=== PATIENT | female | born 1935 | race Native Hawaiian/Other Pacific Islander ===

== ENCOUNTER 2018-08-12 04:27 | Observation (INO) | payer MEDICARE, MEDICAID ==
[2018-08-12 04:31] VITALS: BMI 30.2
--- NOTE | 2018-08-12 04:48 | ED PDOC ---
Arrival/HPI - History of Present Illness Narrative History of Present Illness (Text): 08/12/18 04:52 Pt is an 83 yo female with a PMH of CAD who presents to the ED complaining of dizziness, and 4 episodes of NBNB vomiting with nausea. Pt denies chest pain or SOB. Time/Duration: Prior to Arrival Symptom Course: Unchanged Activities at Onset: Rest Context: Sitting <Michele Reina - Last Filed: 08/12/18 06:05> <Jason Trujillo - Last Filed: 08/12/18 06:35> - General Chief Complaint: Dizziness/Lightheaded Time Seen by Provider: 08/12/18 04:28 Past Medical History - Infectious Disease Hx of Infectious Diseases: None - Cardiac Hx Hypertension: Yes - Pulmonary Hx Respiratory Disorders: No - Neurological Hx Neurological Disorder: No Hx Paralysis: No Hx Vertigo: Yes - HEENT Hx HEENT Disorder: No - Renal Hx Renal Disorder: No - Endocrine/Metabolic Hx Diabetes Mellitus Type 2: Yes - Hematological/Oncological Hx Blood Disorders: No Hx Blood Transfusions: No Hx Blood Transfusion Reaction: No - Integumentary Hx Dermatological Disorder: No Hx Basal Cell Carcinoma: No - Musculoskeletal/Rheumatological Hx Musculoskeletal Disorders: Yes - Psychiatric Hx Emotional Abuse: No Hx Physical Abuse: No Hx Substance Use: No - Surgical History Hx Cardiac Catheterization: Yes - Anesthesia Hx Anesthesia: No Hx Anesthesia Reactions: No Hx Malignant Hyperthermia: No - Suicidal Assessment Feels Threatened In Home Enviroment: No <Michele Reina - Last Filed: 08/12/18 06:05> Family/Social History Family/Social History: Unknown Family HX Smoking Status: Former Smoker Hx Alcohol Use: No Hx Substance Use: No <Michele Reina - Last Filed: 08/12/18 06:05> Allergies/Home Meds <Michele Reinaron - Last Filed: 08/12/18 06:05> <Jason Trujillo - Last Filed: 08/12/18 06:35> Allergies/Adverse Reactions: Allergies No Known Allergies Allergy (Verified 08/12/18 04:32) Home Medications: Home Meds Medication Instructions Recorded Confirmed Aspirin [Adult Low Dose Aspirin EC] 81 mg PO DAILY 08/12/18 08/12/18 Clopidogrel [Plavix] 75 mg PO DAILY 08/12/18 08/12/18 Famotidine [Pepcid] 20 mg PO DAILY 08/12/18 08/12/18 Ibuprofen [Motrin Tab] 800 mg PO TID 08/12/18 08/12/18 Meclizine [Antivert] 25 mg PO TID 08/12/18 08/12/18 Metoprolol Succinate [Kapspargo 100 mg PO DAILY 08/12/18 08/12/18 Sprinkle] Simvastatin [Zocor] 20 mg PO QPM 08/12/18 08/12/18 Sitagliptin Phos/Metformin HCl 1 each PO DAILY 08/12/18 08/12/18 [Janumet 50-500 mg Tablet] Telmisartan [Micardis] 80 mg PO DAILY 08/12/18 08/12/18 hydrALAZINE [hydralazine 25 mg PO QPM 08/12/18 08/12/18 Hydrochloride] traZODone [trazODONE HYDROCHLORIDE] 50 mg PO HS 08/12/18 08/12/18 Review of Systems - Review of Systems Constitutional: Normal Eyes: Normal ENT: Normal Respiratory: Normal Cardiovascular: Normal Gastrointestinal: Normal Musculoskeletal: Normal Skin: Normal Neurological: Dizziness Endocrine: Normal Hemo/Lymphatic: Normal Psychiatric: Normal <Michele Reina - Rodney Filed: 08/12/18 06:05> Physical Exam Vital Signs Reviewed: Yes Vital Signs Temp Pulse Resp BP Pulse Ox 08/12/18 04:35 97.4 F L 75 18 187/100 H 98 Temperature: Afebrile Blood Pressure: Normal Pulse: Regular Respiratory Rate: Normal Appearance: Positive for: Well-Appearing Mental Status: Positive for: Alert and Oriented X 3 Finger Stick Blood Glucose: 177 - Systems Exam Head: Present: Atraumatic, Normocephalic Pupils: Present: PERRL Extroacular Muscles: Present: EOMI Conjunctiva: Present: Normal Mouth: Present: Moist Mucous Membranes Neck: Present: Normal Range of Motion Respiratory/Chest: Present: Clear to Auscultation, Good Air Exchange Cardiovascular: Present: Regular Rate and Rhythm Abdomen: No: Tenderness, Distention Upper Extremity: Present: Normal Inspection Lower Extremity: Present: Normal Inspection Neurological: Present: GCS=15, CN II-XII Intact Skin: Present: Warm, Dry, Normal Color Psychiatric: Present: Alert, Oriented x 3 <Michele Reina - Last Filed: 08/12/18 06:05> Vital Signs Temp Pulse Resp BP Pulse Ox 08/12/18 04:35 97.4 F L 75 18 187/100 H 98 <Jason Trujillo - Last Filed: 08/12/18 06:35> Medical Decision Making ED Course and Treatment: 08/12/18 04:56 CBC CMP Troponin NS100 CXR EKG zofran meclazine 08/12/18 05:02 EKG HR78, RRR, no signs of ST or T wave abnormalities, shows 1st degree block 08/12/18 06:05 pt admitted to hospitalist service Pt seen, examined, assessment and plan discussed with Dr Ronnie Reina PGY1 <Michele Reina - Last Filed: 08/12/18 06:05> - RAD Interpretation Narrative RAD Interpretations (Text): 08/12/18 06:35 cxr my read: no focal infiltrate, cardiomegaly, no wide mediastinum Radiology Orders: 08/12/18 04:49 CHEST TWO VIEWS (PA/LAT) [RAD] Stat Test Kitchen Home Economist: ED Physician - EKG Interpretation EKG Interpretation (Text): 08/12/18 05:01 ekg my read: sinus rhythm at 78 bpm, 1st degree av block, nml qrs, nml axis, inferior infarct, no acute sttw abn Interpreted by ED Physician: Yes - Medication Orders Current Medication Orders: Sodium Chloride (Sodium Chloride 0.9%) 1,000 mls @ 100 mls/hr IV .Q10H JOHN Last Admin: 08/12/18 04:59 Dose: 100 mls/hr eMAR Start Stop Document 08/12/18 04:59 CNR (Rec: 08/12/18 04:59 CNR [id number]) Intravenous Solution Start Date 08/12/18 Start Time 04:59 Discontinued Medications Meclizine HCl (Antivert) 25 mg PO STAT STA Stop: 08/12/18 04:52 Ondansetron HCl (Zofran Inj) 4 mg IVP STAT STA Stop: 08/12/18 04:51 Last Admin: 08/12/18 04:58 Dose: 4 mg IVP Administration Document 08/12/18 04:58 CNR (Rec: 08/12/18 04:59 CNR [id number]) Charges for Administration # of IVP Administrations 1 <Jason Trujillo - Last Filed: 08/12/18 06:35> Disposition/Present on Arrival - Present on Arrival Any Indicators Present on Arrival: No History of DVT/PE: No History of Uncontrolled Diabetes: No Urinary Catheter: No History of Decub. Ulcer: No History Surgical Site Infection Following: Orthopedic Procedures - Disposition Have Diagnosis and Disposition been Completed?: Yes Disposition Time: 06:18 Patient Plan: Admission <Michele Reina - Last Filed: 08/12/18 06:05> <Jason Trujillo - Last Filed: 08/12/18 06:35> - Disposition Diagnosis: Vertigo Disposition: HOSPITALIZED Patient Problems: Current Active Problems Problem Status Onset Vertigo Acute Condition: FAIR
[2018-08-12] MEDS ORDERED: Sodium Chloride 0.9% 1,000 ML IV SCH (05:00)
[2018-08-12 05:24] LABS: BASO # 0.01 K/mm3 (0.0-2.0); BASO % 0.1 % (0.0-3.0); EOS # 0.3 (0.0-0.7); EOS % 2.4 % (1.5-5.0); HEMOGLOBIN 14.6 g/dL (12.0-16.0); LYMPH # 2.3 (1.2-3.4); LYMPH % 20.2 % (22.0-35.0); MEAN CELL VOLUME 88.8 fl (80.0-105.0); MEAN CORPUSCULAR HEMOGLOBIN 29.1 pg (25.0-35.0); MEAN CORPUSCULAR HGB CONC 32.7 g/dl (31.0-37.0); MEAN PLATELET VOLUME 10.3 fl (7.0-11.0); MONO # 0.6 (0.1-0.6); MONO % 5.5 % (1.0-6.0); RBC 5.02 10^6/uL (3.5-6.1); RED CELL DISTRIBUTION WIDTH 14.8 % (11.5-14.5); WHITE BLOOD COUNT 11.4 10^3/uL (4.5-11.0)
[2018-08-12 05:39] LABS: ALB/GLOB RATIO 1.1 (1.1-1.8); ALBUMIN 5.2 g/dL (3.0-4.8); ALT/SGPT 22 U/L (7-56); AST/SGOT 52 U/L (14-36); BLOOD UREA NITROGEN 15 mg/dL (7-21); CALCIUM 9.4 mg/dL (8.4-10.5); GFR NON-AFRICAN AMERICAN > 60
[2018-08-12 05:50] LABS: TROPONIN I < 0.01 ng/mL
[2018-08-12 06:26] VITALS: O2SAT 98
[2018-08-12] MEDS ORDERED: Iohexol 350 MG/100 ML VIAL ONE (08:16)
--- NOTE | 2018-08-12 08:34 | ED PDOC ---
Arrival/HPI - General Chief Complaint: Dizziness/Lightheaded Time Seen by Provider: 08/12/18 04:28 Past Medical History - Infectious Disease Hx of Infectious Diseases: None - Cardiac Hx Hypertension: Yes - Pulmonary Hx Respiratory Disorders: No - Neurological Hx Neurological Disorder: No Hx Paralysis: No Hx Vertigo: Yes - HEENT Hx HEENT Disorder: No - Renal Hx Renal Disorder: No - Endocrine/Metabolic Hx Diabetes Mellitus Type 2: Yes - Hematological/Oncological Hx Blood Disorders: No Hx Blood Transfusions: No Hx Blood Transfusion Reaction: No - Integumentary Hx Dermatological Disorder: No Hx Basal Cell Carcinoma: No - Musculoskeletal/Rheumatological Hx Musculoskeletal Disorders: Yes - Psychiatric Hx Emotional Abuse: No Hx Physical Abuse: No Hx Substance Use: No - Surgical History Hx Cardiac Catheterization: Yes - Anesthesia Hx Anesthesia: No Hx Anesthesia Reactions: No Hx Malignant Hyperthermia: No - Suicidal Assessment Feels Threatened In Home Enviroment: No Family/Social History Family/Social History: Unknown Family HX Smoking Status: Former Smoker Hx Alcohol Use: No Hx Substance Use: No Allergies/Home Meds Allergies/Adverse Reactions: Allergies No Known Allergies Allergy (Verified 08/12/18 04:32) Home Medications: Home Meds Medication Instructions Recorded Confirmed Aspirin [Adult Low Dose Aspirin EC] 81 mg PO DAILY 08/12/18 08/12/18 Clopidogrel [Plavix] 75 mg PO DAILY 08/12/18 08/12/18 Famotidine [Pepcid] 20 mg PO DAILY 08/12/18 08/12/18 Ibuprofen [Motrin Tab] 800 mg PO TID 08/12/18 08/12/18 Meclizine [Antivert] 25 mg PO TID 08/12/18 08/12/18 Metoprolol Succinate [Kapspargo 100 mg PO DAILY 08/12/18 08/12/18 Sprinkle] Simvastatin [Zocor] 20 mg PO QPM 08/12/18 08/12/18 Sitagliptin Phos/Metformin HCl 1 each PO DAILY 08/12/18 08/12/18 [Janumet 50-500 mg Tablet] Telmisartan [Micardis] 80 mg PO DAILY 08/12/18 08/12/18 hydrALAZINE [hydralazine 25 mg PO QPM 08/12/18 08/12/18 Hydrochloride] traZODone [trazODONE HYDROCHLORIDE] 50 mg PO HS 08/12/18 08/12/18 Physical Exam Vital Signs Temp Pulse Resp BP Pulse Ox 08/12/18 08:09 97.9 F 83 18 149/89 98 08/12/18 06:25 82 19 156/89 H 98 08/12/18 05:08 73 16 163/93 H 95 08/12/18 04:35 97.4 F L 75 18 187/100 H 98 Finger Stick Blood Glucose: 177 Medical Decision Making - Lab Interpretations Lab Results: Troponin I < 0.01 ng/mL 08/12/18 05:08 Total Bilirubin 0.7 mg/dL (0.2-1.3) 08/12/18 05:08 AST 52 U/L (14-36) H 08/12/18 05:08 ALT 22 U/L (7-56) 08/12/18 05:08 Alkaline Phosphatase 90 U/L (38-126) 08/12/18 05:08 Total Protein 9.8 g/dL (5.8-8.3) H 08/12/18 05:08 Albumin 5.2 g/dL (3.0-4.8) H 08/12/18 05:08 Globulin 4.6 gm/dL 08/12/18 05:08 Albumin/Globulin Ratio 1.1 (1.1-1.8) 08/12/18 05:08 - RAD Interpretation Radiology Orders: 08/12/18 04:49 CHEST TWO VIEWS (PA/LAT) [RAD] Stat - Medication Orders Current Medication Orders: Aspirin (Ecotrin) 81 mg PO 0800 JOHN Sodium Chloride (Sodium Chloride 0.9%) 1,000 mls @ 100 mls/hr IV .Q10H JOHN Last Admin: 08/12/18 04:59 Dose: 100 mls/hr eMAR Start Stop Document 08/12/18 04:59 CNR (Rec: 08/12/18 04:59 CNR [id number]) Intravenous Solution Start Date 08/12/18 Start Time 04:59 Ondansetron HCl (Zofran Inj) 4 mg IVP Q6H PRN PRN Reason: Nausea/Vomiting Discontinued Medications Meclizine HCl (Antivert) 25 mg PO STAT STA Stop: 08/12/18 04:52 Last Admin: 08/12/18 05:43 Dose: 25 mg Ondansetron HCl (Zofran Inj) 4 mg IVP STAT STA Stop: 08/12/18 04:51 Last Admin: 08/12/18 04:58 Dose: 4 mg IVP Administration Document 08/12/18 04:58 CNR (Rec: 08/12/18 04:59 CNR [id number]) Charges for Administration # of IVP Administrations 1 Disposition/Present on Arrival - Present on Arrival Any Indicators Present on Arrival: No History of DVT/PE: No History of Uncontrolled Diabetes: No Urinary Catheter: No History of Decub. Ulcer: No History Surgical Site Infection Following: Orthopedic Procedures - Disposition Diagnosis: Vertigo Disposition: HOSPITALIZED Patient Problems: Current Active Problems Problem Status Onset Vertigo Acute Condition: FAIR
--- NOTE | 2018-08-12 09:19 | RAD ---
Date of service: 08/12/2018 HISTORY: vertigo COMPARISON: No prior. TECHNIQUE: Chest PA and lateral views FINDINGS: LUNGS: No active pulmonary disease. PLEURA: No significant pleural effusion identified. No pneumothorax apparent. CARDIOVASCULAR: No aortic atherosclerotic calcification present. Normal cardiac size. No pulmonary vascular congestion. OSSEOUS STRUCTURES: No significant abnormalities. VISUALIZED UPPER ABDOMEN: Normal. OTHER FINDINGS: None. IMPRESSION: No active disease.
--- NOTE | 2018-08-12 09:37 | CT ---
Date of service: 08/12/2018 PROCEDURE: CT HEAD WITHOUT CONTRAST. HISTORY: weakness COMPARISON: None available. TECHNIQUE: Axial computed tomography images were obtained through the head/brain without intravenous contrast. Radiation dose: Total exam DLP = 847.27 mGy-cm. This CT exam was performed using one or more of the following dose reduction techniques: Automated exposure control, adjustment of the mA and/or kV according to patient size, and/or use of iterative reconstruction technique. FINDINGS: HEMORRHAGE: No intracranial hemorrhage. BRAIN: No mass effect or edema. No atrophy or chronic microvascular ischemic changes. VENTRICLES: Unremarkable. No hydrocephalus. CALVARIUM: Unremarkable. PARANASAL SINUSES: Unremarkable as visualized. No significant inflammatory changes. MASTOID AIR CELLS: Unremarkable as visualized. No inflammatory changes. OTHER FINDINGS: None. IMPRESSION: Normal CT of the Head.
[2018-08-12 10:15] LABS: HDL CHOLESTEROL 62 mg/dL (29-60)
[2018-08-12 10:25] LABS: LDL CHOLESTEROL 55 mg/dL (0-129)
--- NOTE | 2018-08-12 11:32 | MRI ---
Date of service: 08/12/2018 PROCEDURE: MRI BRAIN WITHOUT CONTRAST HISTORY: rule out strooke COMPARISON: None available. TECHNIQUE: Multiplanar, multisequence MR images of the brain were obtained without intravenous contrast enhancement. FINDINGS: HEMORRHAGE: None DWI: No evidence of an acute or early subacute infarction. BRAIN PARENCHYMA: No mass effect or edema. Mild chronic microvascular changes are seen in the periventricular and deep white matter. There is moderate atrophy especially over the frontal lobes. VENTRICLES: Unremarkable. No hydrocephalus. CRANIUM: Unremarkable. ORBITS: Grossly unremarkable. PARANASAL SINUSES/MASTOIDS: Clear VASCULAR SYSTEM: Skull base flow voids intact. OTHER FINDINGS: None. IMPRESSION: Mild chronic microvascular changes are seen in the periventricular and deep white matter. There is moderate atrophy especially over the frontal lobes. No acute intracranial findings
[2018-08-12] MEDS ORDERED: Potassium Chloride 40 mEq/30 ml LIQ UD PO ONE (11:48)
--- NOTE | 2018-08-12 12:19 | CT ---
Date of service: 08/12/2018 PROCEDURE: CT Angiography of the neck with contrast HISTORY: evaluation of vertigo COMPARISON: None. TECHNIQUE: Contiguous axial images of the neck were obtained from the level of the skull-base to the superior mediastinum in the arteriographic phase of enhancement. Coronal and sagittal reformats or also generated. IV contrast dose: 100 cc of Omni 350 Radiation dose: Total exam DLP = 491.93 mGy-cm. This CT exam was performed using one or more of the following dose reduction techniques: Automated exposure control, adjustment of the mA and/or kV according to patient size, and/or use of iterative reconstruction technique. FINDINGS: RIGHT CAROTID ARTERIES: Common Carotid Artery: Normal. Carotid Bifurcation: Normal. Internal Carotid Artery:Normal. External Carotid Artery (proximal branches): Normal. LEFT CAROTID ARTERIES: Common Carotid Artery: Normal. Carotid Bifurcation: Normal. Internal Carotid Artery:Normal. External Carotid Artery (proximal branches): Normal. VERTEBRAL ARTERIES: Right Vertebral Artery: Normal. Left Vertebral Artery: Normal. OTHER FINDINGS: no aortic atherosclerotic calcification or mural plaque present. IMPRESSION: No significant stenosis CT Angiography of the Brain. HISTORY: evaluation of vertigo COMPARISON: None available. TECHNIQUE: CT angiography of the intracranial arteries was performed. Coronal and sagittal maximum intensity projection reformated images were generated. Radiation dose: Total exam DLP = 491.93 mGy-cm. This CT exam was performed using one or more of the following dose reduction techniques: Automated exposure control, adjustment of the mA and/or kV according to patient size, and/or use of iterative reconstruction technique. FINDINGS: INTERNAL CEREBRAL ARTERIES: Unremarkable. The skull base, petrous, cavernous and supraclinoid segments are bilaterally widely patent. ANTERIOR CEREBRAL ARTERIES: Unremarkable. A1 and A2 segments are widely patent. Smaller distal branches unremarkable, as visualized. MIDDLE CEREBRAL ARTERIES: Unremarkable. M1 and M2 segments are widely patent. Perisylvian branches grossly symmetric. POSTERIOR CIRCULATION: Basilar Artery: Unremarkable. Distal Vertebral Arteries: Unremarkable. Posterior Cerebral Arteries: Unremarkable. Posterior Inferior Cerebellar Arteries: Unremarkable. ANEURYSM/ VASCULAR MALFORMATIONS: None. OTHER FINDINGS: None. IMPRESSION: Unremarkable CT Angiography of the Brain.
[2018-08-12] MEDS ORDERED: Dextrose 50% SYRINGE Inj (50 ml) IV PRN (12:22)
--- NOTE | 2018-08-12 12:29 | CP.PCM.HP ---
<WesleyneilLaxmi dodson - Last Filed: 08/12/18 12:17> History of Present Illness - History of Present Illness History of Present Illness: Laxmi Tran, PGY-1, Internal Medicine History and Physical for Dr. Baca 83 year old female with past medical history of vertigo, hypertension, CAD with 1 stent placed 10 years ago, diabetes mellitus presented with dizziness that started at 2:00 this morning. She woke up, went to the bathroom, and had seven episodes of vomitus. She reports that she has felt this way in the past for vertigo attacks, however, this is the worst vertigo attack that she has had. She felt dizzy, worse with head movement and improved with closing her eye. Dizziness was also worsened with sitting up. She denied tongue biting, loss of consciousness, fecal/urinary incontinence, recent URI, tinnitus, hearing loss. She denied any weakness on one side compared to the other. She recently had metoprolol succinate increased to 100 mg from 50 mg due to elevated blood pressure. 12-point ROS was unremarkable except for what was mentioned above. PMH: as stated above PSH: denies FMHx: sister had breast cancer SHx: denies alcohol, tobacco, recreational drug use Allergies: NKDA PMD: Dr. Ortiz [facility]acy[facility] Insurance: [employer] Home medications: janumet 50/500 once a day trazodone 50 once a day for insomnia vitamin b12 500 mcg meclizine 25 mg three times a day hydralazine 25 mg as needed for elevated blood pressure famotidine 20 mg once a day motrin 800 mg three times a day 10 days supply ammonium lactate lotion telmisartan 80 mg once a day metoprolol succinate 100 mg daily aspirin 81 mg daily metformin 1000 mg BID simvastatin 20 mg daily multivitamin plavix 75 mg daily Present on Admission - Present on Admission Any Indicators Present on Admission: No Review of Systems - Review of Systems Review of Systems: except for what was mentioned above. Past Patient History - Infectious Disease Hx of Infectious Diseases: None - Past Social History Smoking Status: Former Smoker - CARDIAC Hx Hypertension: Yes - PULMONARY Hx Respiratory Disorders: No - NEUROLOGICAL Hx Neurological Disorder: No Hx Paralysis: No Hx Vertigo: Yes - HEENT Hx HEENT Problems: No - RENAL Hx Chronic Kidney Disease: No - ENDOCRINE/METABOLIC Hx Diabetes Mellitus Type 2: Yes - HEMATOLOGICAL/ONCOLOGICAL Hx Blood Disorders: No Hx Blood Transfusions: No Hx Blood Transfusion Reaction: No - INTEGUMENTARY Hx Dermatological Problems: No Hx Basil Cell: No - MUSCULOSKELETAL/RHEUMATOLOGICAL Hx Musculoskeletal Disorders: Yes - PSYCHIATRIC Hx Emotional Abuse: No Hx Physical Abuse: No Hx Substance Use: No - SURGICAL HISTORY Hx Cardiac Catheterization: Yes - ANESTHESIA Hx Anesthesia: No Hx Anesthesia Reactions: No Hx Malignant Hyperthermia: No Meds Allergies/Adverse Reactions: Allergies Allergy/AdvReac Type Severity Reaction Status Date / Time No Known Allergies Allergy Verified 08/12/18 12:04 Physical Exam - Constitutional Appears: Non-toxic Additional comments: nauseated at bedside - Head Exam Head Exam: ATRAUMATIC, NORMAL INSPECTION, NORMOCEPHALIC - Eye Exam Eye Exam: EOMI Pupil Exam: PERRL - ENT Exam ENT Exam: Mucous Membranes Moist - Neck Exam Neck exam: Positive for: Normal Inspection - Respiratory Exam Respiratory Exam: Clear to Auscultation Bilateral, NORMAL BREATHING PATTERN - Cardiovascular Exam Cardiovascular Exam: REGULAR RHYTHM, RRR, +S1, +S2. absent: Clicks, Gallop, Rubs - GI/Abdominal Exam GI & Abdominal Exam: Normal Bowel Sounds, Soft. absent: Distended, Firm, Guarding, Tenderness - Extremities Exam Extremities exam: Positive for: full ROM, normal inspection - Back Exam Back exam: NORMAL INSPECTION - Neurological Exam Neurological exam: Alert, CN II-XII Intact, Normal Gait, Oriented x3 - Expanded Neurological Exam Expanded Patient oriented to: person, place, time Cranial nerves: EOM's Intact: Normal, Facial Palsey w/Forehead Movement: Normal, Facial Palsey w/o Forehead Movement: Normal, Facial Sensation: Normal, Nystagmus: Normal, Tongue Deviation: Normal Cerebellar Function: Finger to Nose: Normal Upper motor neuron: Mike Neglect: Normal Neuro motor strength exam: Left Upper Extremity: 5, Right Upper Extremity: 5, Left Lower Extremity: 5, Right Lower Extremity: 5 Coma Scale Eye Opening: SPONTANEOUS Coma Scale Motor Response: OBEYS COMMANDS Coma Scale Verbal: Oriented Coma Scale Total: 15 - Psychiatric Exam Psychiatric exam: Normal Affect, Normal Mood - Skin Skin Exam: Dry, Intact, Normal Color Results - Vital Signs Recent Vital Signs: Last Vital Signs Temp 97.9 F 08/12/18 08:09 Pulse 83 08/12/18 08:09 Resp 18 08/12/18 08:09 BP 149/89 08/12/18 08:09 Pulse Ox 98 08/12/18 08:09 - Labs Result Diagrams: 08/12/18 05:08 08/12/18 05:08 Labs: Laboratory Results - last 24 hr 08/12/18 08/12/18 08/12/18 05:08 05:08 05:08 WBC 11.4 H RBC 5.02 Hgb 14.6 Hct 44.6 MCV 88.8 MCH 29.1 MCHC 32.7 RDW 14.8 H Plt Count 189 MPV 10.3 Neut % (Auto) 71.8 H Lymph % (Auto) 20.2 L Burnett % (Auto) 5.5 Eos % (Auto) 2.4 Baso % (Auto) 0.1 Lymph # (Auto) 2.3 Burnett # (Auto) 0.6 Eos # (Auto) 0.3 Baso # (Auto) 0.01 Absolute Neuts (auto) 8.17 H Sodium 145 Potassium 3.5 L Chloride 105 Carbon Dioxide 24 Anion Gap 19 BUN 15 Creatinine 0.6 L Est GFR ( Amer) > 60 Est GFR (Non-Af Amer) > 60 Random Glucose 201 H Calcium 9.4 Total Bilirubin 0.7 AST 52 H ALT 22 Alkaline Phosphatase 90 Troponin I < 0.01 Total Protein 9.8 H Albumin 5.2 H Globulin 4.6 Albumin/Globulin Ratio 1.1 Triglycerides 104 Cholesterol 147 LDL Cholesterol Direct 55 HDL Cholesterol 62 H TSH 3rd Generation 08/12/18 08:07 WBC RBC Hgb Hct MCV MCH MCHC RDW Plt Count MPV Neut % (Auto) Lymph % (Auto) Burnett % (Auto) Eos % (Auto) Baso % (Auto) Lymph # (Auto) Burnett # (Auto) Eos # (Auto) Baso # (Auto) Absolute Neuts (auto) Sodium Potassium Chloride Carbon Dioxide Anion Gap BUN Creatinine Est GFR ( Amer) Est GFR (Non-Af Amer) Random Glucose Calcium Total Bilirubin AST ALT Alkaline Phosphatase Troponin I Total Protein Albumin Globulin Albumin/Globulin Ratio Triglycerides Cholesterol LDL Cholesterol Direct HDL Cholesterol TSH 3rd Generation 1.60 Assessment & Plan - Assessment and Plan (Free Text) Assessment: 83 year old female with past medical history of vertigo, hypertension, CAD with 1 stent placed 10 years ago, diabetes mellitus presented with dizziness that started at 2:00 this morning. Patient was admitted for likely vertigo. Plan: Dizziness likely 2/2 to vertigo with rule out of CVA -Brain MRI: mild chronic microvascular changes in periventricular and deep white matter. Moderate atrophy over frontal lobes -Head CT and CTA were unremarkable -EKG: sinus rhythm with 1st degree AV block with HR: 78 -Tropx1 Negative. Follow up 2 more troponins -Doubt CVA due to negative findings -TSH: unremarkable -Lipid panel unremarkable -Follow up HgbA1c -Will start meclizine for likely vertigo -Start zofran for nausea -Dr. Bauer, Neurology, consulted for further recommendations Left calf tenderness with rule out DVT -Follow up extremity ultrasound results CAD status post 1 stent -Start aspirin, lipitor, plavix, cozaar, toprol Hypertension -Start cozaar, toprol Insomnia -Continue home trazodone Diabetes mellitus type II -Follow up hemoglobin A1c -Start medium SSI -Accuchecks ACHS Hypokalemia -Replete as necessary GI prophylaxis: pepcid BID DVT prophylaxis: lovenox Patient plan discussed with Dr. Baca - Date & Time Date: 08/12/18 Time: 12:31 <Lisa Baca - Last Filed: 08/12/18 13:47> Results - Vital Signs Recent Vital Signs: Last Vital Signs Temp 97.3 F L 08/12/18 12:00 Pulse 73 08/12/18 12:00 Resp 20 08/12/18 12:00 BP 155/90 H 08/12/18 12:00 Pulse Ox 98 08/12/18 08:09 - Labs Result Diagrams: 08/12/18 05:08 08/12/18 05:08 Labs: Laboratory Results - last 24 hr 08/12/18 08/12/18 08/12/18 05:08 05:08 05:08 WBC 11.4 H RBC 5.02 Hgb 14.6 Hct 44.6 MCV 88.8 MCH 29.1 MCHC 32.7 RDW 14.8 H Plt Count 189 MPV 10.3 Neut % (Auto) 71.8 H Lymph % (Auto) 20.2 L Burnett % (Auto) 5.5 Eos % (Auto) 2.4 Baso % (Auto) 0.1 Lymph # (Auto) 2.3 Burnett # (Auto) 0.6 Eos # (Auto) 0.3 Baso # (Auto) 0.01 Absolute Neuts (auto) 8.17 H Sodium 145 Potassium 3.5 L Chloride 105 Carbon Dioxide 24 Anion Gap 19 BUN 15 Creatinine 0.6 L Est GFR ( Amer) > 60 Est GFR (Non-Af Amer) > 60 Random Glucose 201 H Calcium 9.4 Total Bilirubin 0.7 AST 52 H ALT 22 Alkaline Phosphatase 90 Lactate Dehydrogenase Total Creatine Kinase Troponin I < 0.01 Total Protein 9.8 H Albumin 5.2 H Globulin 4.6 Albumin/Globulin Ratio 1.1 Triglycerides 104 Cholesterol 147 LDL Cholesterol Direct 55 HDL Cholesterol 62 H TSH 3rd Generation 08/12/18 08/12/18 08:07 12:50 WBC RBC Hgb Hct MCV MCH MCHC RDW Plt Count MPV Neut % (Auto) Lymph % (Auto) Burnett % (Auto) Eos % (Auto) Baso % (Auto) Lymph # (Auto) Burnett # (Auto) Eos # (Auto) Baso # (Auto) Absolute Neuts (auto) Sodium Potassium Chloride Carbon Dioxide Anion Gap BUN Creatinine Est GFR ( Amer) Est GFR (Non-Af Amer) Random Glucose Calcium Total Bilirubin AST ALT Alkaline Phosphatase Lactate Dehydrogenase 369 Total Creatine Kinase 54 Troponin I 0.05 D Total Protein Albumin Globulin Albumin/Globulin Ratio Triglycerides Cholesterol LDL Cholesterol Direct HDL Cholesterol TSH 3rd Generation 1.60 Attending/Attestation - Attestation I have personally seen and examined this patient.: Yes I have fully participated in the care of the patient.: Yes I have reviewed all pertinent clinical information: Yes Notes (Text): 08/12/18 13:42 83 year old female with past medical history of CAD s/p stent, hypertension, diabetes and vertigo who presents with complaint of dizziness with nausea/vomiting since this morning. CT head and CTA head/neck were negative for acute findings. MRI brain showed mild chronic microvascular changes in periventricular and deep white matter; moderate atrophy over frontal lobes. Will obtain serial cardiac enzymes and echocardiogram. Continue with meclizine and zofran prn. Neurology and PT evaluations are requested. Continue with home medications for CAD. Also complained of left calf tenderness today with LE swelling few days prior. Will follow up on LE doppler. Will replete and repeat potassium. Lisa Baca MD Hospitalist.
[2018-08-12 13:19] LABS: TROPONIN I 0.05 ng/mL
[2018-08-12] MEDS ORDERED: Pneumococcal 23-Valent Vaccine IM ONE (14:35)
[2018-08-12] MEDS: Insulin Reg-MEDIUM-Coverage SC SCH (17:54)
[2018-08-12 18:18] LABS: TROPONIN I 0.05 ng/mL
--- NOTE | 2018-08-12 18:21 | CARD ---
APPROVED REPORT Date of service: 08/12/2018 EKG Measurement Heart [id number] <Conclusion> Sinus rhythm with 1st degree AV block Inferior infarct, age undetermined Abnormal ECG
[2018-08-13] MEDS: Insulin Reg-MEDIUM-Coverage SC SCH ×2 (07:47→11:12)
[2018-08-13 07:51] LABS: BASO # 0.01 K/mm3 (0.0-2.0); BASO % 0.2 % (0.0-3.0); EOS # 0.2 (0.0-0.7); EOS % 3.2 % (1.5-5.0); LYMPH # 2.3 (1.2-3.4); MEAN CELL VOLUME 89.6 fl (80.0-105.0); MEAN CORPUSCULAR HEMOGLOBIN 28.7 pg (25.0-35.0); MONO # 0.5 (0.1-0.6); RBC 4.25 10^6/uL (3.5-6.1); RED CELL DISTRIBUTION WIDTH 15.2 % (11.5-14.5)
[2018-08-13] MEDS ORDERED: Metoprolol Succinate 100 mg XL Tab PO SCH (08:00)
[2018-08-13] MEDS ORDERED: Multivitamin With Minerals Tab PO SCH (08:00)
[2018-08-13 08:07] LABS: HEMOGLOBIN 12.2 g/dL (12.0-16.0)
[2018-08-13] MEDS ORDERED: Enoxaparin 40 mg Syringe SC SCH (10:00)
[2018-08-13 11:38] VITALS: BP 106/70; PULSE 66; RESP 18; TEMP 97.7
--- NOTE | 2018-08-13 11:50 | CP.PCM.DIS ---
<Laxmi Tran - Last Filed: 08/13/18 11:37> Provider - Provider Date of Admission: 08/12/18 06:21 Attending physician: Lisa Baca MD Primary care physician: Chuy Ortiz MD Consults: 08/12/18 07:59 Consult [Physician Consult] Routine Comment: Consulting Provider: Annette Bauer Consulting Physician: Annette Bauer Reason for Consult: vertigo 08/12/18 14:35 Case Management Referral Routine Comment: LIVES IN A [facility].HOME HEALTH AIDE 4H Physician Instructions: Reason For Exam: EVALUATION Reason for Referral: Oem Sales Manager Eval 08/12/18 14:44 Social Work Referral Routine Comment: HAS HOME HEALTH AIDE 4HRS A DAY M-F Physician Instructions: Reason For Exam: EVALUATION Time Spent in preparation of Discharge (in minutes): 45 Hospital Course - Lab Results Lab Results: Most Recent Lab Values WBC 6.0 10^3/uL (4.5-11.0) D 08/13/18 06:00 RBC 4.25 10^6/uL (3.5-6.1) 08/13/18 06:00 Hgb 12.2 g/dL (12.0-16.0) D 08/13/18 06:00 Hct 38.1 % (36.0-48.0) 08/13/18 06:00 MCV 89.6 fl (80.0-105.0) 08/13/18 06:00 MCH 28.7 pg (25.0-35.0) 08/13/18 06:00 MCHC 32.0 g/dl (31.0-37.0) 08/13/18 06:00 RDW 15.2 % (11.5-14.5) H 08/13/18 06:00 Plt Count 154 10^3/uL (120.0-450.0) 08/13/18 06:00 MPV 10.0 fl (7.0-11.0) 08/13/18 06:00 Neut % (Auto) 50.6 % (50.0-68.0) 08/13/18 06:00 Lymph % (Auto) 38.0 % (22.0-35.0) H 08/13/18 06:00 Robeson % (Auto) 8.0 % (1.0-6.0) H 08/13/18 06:00 Eos % (Auto) 3.2 % (1.5-5.0) 08/13/18 06:00 Baso % (Auto) 0.2 % (0.0-3.0) 08/13/18 06:00 Lymph # (Auto) 2.3 (1.2-3.4) 08/13/18 06:00 Robeson # (Auto) 0.5 (0.1-0.6) 08/13/18 06:00 Eos # (Auto) 0.2 (0.0-0.7) 08/13/18 06:00 Baso # (Auto) 0.01 K/mm3 (0.0-2.0) 08/13/18 06:00 Absolute Neuts (auto) 3.02 (1.4-6.5) 08/13/18 06:00 Sodium 145 mmol/L (132-148) 08/12/18 05:08 Potassium 3.5 mmol/L (3.6-5.0) L 08/12/18 05:08 Chloride 105 mmol/L (98-107) 08/12/18 05:08 Carbon Dioxide 24 mmol/L (21-33) 08/12/18 05:08 Anion Gap 19 (10-20) 08/12/18 05:08 BUN 15 mg/dL (7-21) 08/12/18 05:08 Creatinine 0.6 mg/dl (0.7-1.2) L 08/12/18 05:08 Est GFR ( Amer) > 60 08/12/18 05:08 Est GFR (Non-Af Amer) > 60 08/12/18 05:08 POC Glucose (mg/dL) 130 mg/dL (65-110) H 08/13/18 11:11 Random Glucose 201 mg/dL (70-110) H 08/12/18 05:08 Calcium 9.4 mg/dL (8.4-10.5) 08/12/18 05:08 Total Bilirubin 0.7 mg/dL (0.2-1.3) 08/12/18 05:08 AST 52 U/L (14-36) H 08/12/18 05:08 ALT 22 U/L (7-56) 08/12/18 05:08 Alkaline Phosphatase 90 U/L (38-126) 08/12/18 05:08 Lactate Dehydrogenase 335 U/L (333-699) 08/12/18 17:50 Total Creatine Kinase 64 U/L (35-230) 08/12/18 17:50 Troponin I 0.05 ng/mL 08/12/18 17:50 Total Protein 9.8 g/dL (5.8-8.3) H 08/12/18 05:08 Albumin 5.2 g/dL (3.0-4.8) H 08/12/18 05:08 Globulin 4.6 gm/dL 08/12/18 05:08 Albumin/Globulin Ratio 1.1 (1.1-1.8) 08/12/18 05:08 Triglycerides 104 mg/dL (35-160) 08/12/18 05:08 Cholesterol 147 mg/dL (130-200) 08/12/18 05:08 LDL Cholesterol Direct 55 mg/dL (0-129) 08/12/18 05:08 HDL Cholesterol 62 mg/dL (29-60) H 08/12/18 05:08 TSH 3rd Generation 1.60 mIU/mL (0.46-4.68) 08/12/18 08:07 - Hospital Course Hospital Course: Laxmi Tran, PGY-1, Internal Medicine Discharge Summary for Dr. Baca 83 year old female with past medical history of vertigo, hypertension, CAD with 1 stent placed 10 years ago, diabetes mellitus presented with dizziness that started at 2:00 the morning of admission. She woke up, went to the bathroom, and had seven episodes of vomitus. She reported that she had felt this way in the past for vertigo attacks, however, this was the worst vertigo attack that she had. She felt dizzy, worse with head movement and improved with eye closing. Diz ziness was also worsened with sitting up. She has no focal neuro deficits or symptoms of seizures. Upon admission, patient was holding a bucket in her arm in light of nausea and was not very receptive to questioning due to dizziness and nausea. Family at bedside helped provide history. Upon admission, blood pressure was 187/100. CXR showed no acute findings.EKG showed sinus rhythm with 1st degree AV block with HR: 78. Head CT and CTA were unremarkable. Brain MRI showed mild chronic microvascular changes seen in the periventricular and deep white matter. There was moderate atrophy over the fro ntal lobes but no acute findings. Extremity ultrasound preliminary read showed no DVT as patient had left calf tenderness, but this was likely from hypokalemia from multiple episodes of vomitus. Troponinx3 was 0.01, 0.05, 0.05. TSH was unremarkable. Lipid panel was unremarkable. Echocardiogram was performed but official results are not back at this time and will be delivered to her outpatient. Upon admission, patient was started on all home medications, including meclizine helping with vertigo, as well as, toprol and losartan which helped control blood pressure. This morning, patient was found to be sitting up in bed, AAOx3, and comfortable. Dr. Bauer, neurology, had no recommendations during this inpatient visit and advised that patient was stable from neurology standpoint. Patient was found to be stable and ready for discharge. Patient was told to follow up with PCP within 3-5 days. Patient was told to obtain leaflet or newspaper deliverer and make an appointment. Patient was told to take all medications as prescribed. Patient was told to return to the emergency department if she had any new or concerning symptoms. This is a brief summary of the events that transpired during this hospital visit. For more information, please refer to hospital documentation. Discharge diagnoses Vertigo Hypokalemia CAD status post 1 stent Hypertension Insomina DM II - Date & Time of H&P Date of H&P: 08/12/18 Time of H&P: 12:17 Discharge Exam - Head Exam Head Exam: ATRAUMATIC, NORMAL INSPECTION, NORMOCEPHALIC - Eye Exam Eye Exam: EOMI Pupil Exam: PERRL - ENT Exam ENT Exam: Mucous Membranes Moist - Respiratory Exam Respiratory Exam: Clear to PA & Lateral, NORMAL BREATHING PATTERN - Cardiovascular Exam Cardiovascular Exam: REGULAR RHYTHM, RRR, +S1, +S2. absent: Clicks, Gallop, Rubs - GI/Abdominal Exam GI & Abdominal Exam: Normal Bowel Sounds, Soft. absent: Distended, Firm, Guarding, Tenderness - Extremities Exam Extremities exam: full ROM - Back Exam Back exam: FULL ROM - Neurological Exam Neurological exam: Alert, CN II-XII Intact, Normal Gait, Oriented x3 - Psychiatric Exam Psychiatric exam: Normal Affect, Normal Mood - Skin Skin Exam: Dry, Intact, Normal Color Discharge Plan - Discharge Medications Prescriptions: Meclizine [Meclizine*] 25 mg PO TID 30 Days #90 tab - Follow Up Plan Condition: FAIR Disposition: HOME/ ROUTINE Additional Instructions: Please follow up with your primary care doctor within 3-5 days. Please have primary care doctor refer you to leaflet or newspaper deliverer or Dr. Davis Please take all medications as prescribed. Please return to the emergency department if you have any new or concerning symptoms. Referrals: Chuy Ortiz MD [Primary Care Provider] - Ady Davis MD [Staff Provider] - <Lisa Baca - Last Filed: 08/13/18 12:18> Provider - Provider Date of Admission: 08/12/18 06:21 Attending physician: Lisa Baca MD Primary care physician: Chuy Ortiz MD Consults: 08/12/18 07:59 Consult [Physician Consult] Routine Comment: Consulting Provider: Annette Bauer Consulting Physician: Annette Bauer Reason for Consult: vertigo 08/12/18 14:35 Case Management Referral Routine Comment: LIVES IN A [facility] CIT[facility].HOME HEALTH AIDE 4H Physician Instructions: Reason For Exam: EVALUATION Reason for Referral: Oem Sales Manager Eval 08/12/18 14:44 Social Work Referral Routine Comment: HAS HOME HEALTH AIDE 4HRS A DAY M-F Physician Instructions: Reason For Exam: EVALUATION Hospital Course - Lab Results Lab Results: Most Recent Lab Values WBC 6.0 10^3/uL (4.5-11.0) D 08/13/18 06:00 RBC 4.25 10^6/uL (3.5-6.1) 08/13/18 06:00 Hgb 12.2 g/dL (12.0-16.0) D 08/13/18 06:00 Hct 38.1 % (36.0-48.0) 08/13/18 06:00 MCV 89.6 fl (80.0-105.0) 08/13/18 06:00 MCH 28.7 pg (25.0-35.0) 08/13/18 06:00 MCHC 32.0 g/dl (31.0-37.0) 08/13/18 06:00 RDW 15.2 % (11.5-14.5) H 08/13/18 06:00 Plt Count 154 10^3/uL (120.0-450.0) 08/13/18 06:00 MPV 10.0 fl (7.0-11.0) 08/13/18 06:00 Neut % (Auto) 50.6 % (50.0-68.0) 08/13/18 06:00 Lymph % (Auto) 38.0 % (22.0-35.0) H 08/13/18 06:00 Robeson % (Auto) 8.0 % (1.0-6.0) H 08/13/18 06:00 Eos % (Auto) 3.2 % (1.5-5.0) 08/13/18 06:00 Baso % (Auto) 0.2 % (0.0-3.0) 08/13/18 06:00 Lymph # (Auto) 2.3 (1.2-3.4) 08/13/18 06:00 Robeson # (Auto) 0.5 (0.1-0.6) 08/13/18 06:00 Eos # (Auto) 0.2 (0.0-0.7) 08/13/18 06:00 Baso # (Auto) 0.01 K/mm3 (0.0-2.0) 08/13/18 06:00 Absolute Neuts (auto) 3.02 (1.4-6.5) 08/13/18 06:00 Sodium 145 mmol/L (132-148) 08/12/18 05:08 Potassium 3.5 mmol/L (3.6-5.0) L 08/12/18 05:08 Chloride 105 mmol/L (98-107) 08/12/18 05:08 Carbon Dioxide 24 mmol/L (21-33) 08/12/18 05:08 Anion Gap 19 (10-20) 08/12/18 05:08 BUN 15 mg/dL (7-21) 08/12/18 05:08 Creatinine 0.6 mg/dl (0.7-1.2) L 08/12/18 05:08 Est GFR ( Amer) > 60 08/12/18 05:08 Est GFR (Non-Af Amer) > 60 08/12/18 05:08 POC Glucose (mg/dL) 130 mg/dL (65-110) H 08/13/18 11:11 Random Glucose 201 mg/dL (70-110) H 08/12/18 05:08 Calcium 9.4 mg/dL (8.4-10.5) 08/12/18 05:08 Total Bilirubin 0.7 mg/dL (0.2-1.3) 08/12/18 05:08 AST 52 U/L (14-36) H 08/12/18 05:08 ALT 22 U/L (7-56) 08/12/18 05:08 Alkaline Phosphatase 90 U/L (38-126) 08/12/18 05:08 Lactate Dehydrogenase 335 U/L (333-699) 08/12/18 17:50 Total Creatine Kinase 64 U/L (35-230) 08/12/18 17:50 Troponin I 0.05 ng/mL 08/12/18 17:50 Total Protein 9.8 g/dL (5.8-8.3) H 08/12/18 05:08 Albumin 5.2 g/dL (3.0-4.8) H 08/12/18 05:08 Globulin 4.6 gm/dL 08/12/18 05:08 Albumin/Globulin Ratio 1.1 (1.1-1.8) 08/12/18 05:08 Triglycerides 104 mg/dL (35-160) 08/12/18 05:08 Cholesterol 147 mg/dL (130-200) 08/12/18 05:08 LDL Cholesterol Direct 55 mg/dL (0-129) 08/12/18 05:08 HDL Cholesterol 62 mg/dL (29-60) H 08/12/18 05:08 TSH 3rd Generation 1.60 mIU/mL (0.46-4.68) 08/12/18 08:07 Attending/Attestation - Attestation I have personally seen and examined this patient.: Yes I have fully participated in the care of the patient.: Yes I have reviewed all pertinent clinical information, including history, physical exam and plan: Yes Notes (Text): 08/13/18 12:15 83 year old female with past medical history of CAD s/p stent, hypertension, diabetes and vertigo who presents with complaint of dizziness with nausea/vomiting. CT head and CTA head/neck were negative for acute findings. MRI brain showed mild chronic microvascular changes in periventricular and deep white matter; moderate atrophy over frontal lobes. She was seen by neurology with no further recommendations. She was maintained on meclizine with improvement of symptoms. Serial cardiac enzymes were negative to indeterminate. She denied any chest pain or shortness of breath and her EKG did not show any ischemic changes. Potassium was repleted yesterday. Her leg cramp has improved. LE doppler was done (prelim read is negative). Echocardiogram was also done with pending read, will follow. Overall her symptoms have improved. Patient is discharged home to follow up with pmd. Also suggested to follow up with leaflet or newspaper deliverer. Monitor BP at home and office. Lisa Baca MD Hospitalist.
--- NOTE | 2018-08-13 12:15 | CARD ---
APPROVED REPORT Date of service: 08/12/2018 EXAM: Two-dimensional and M-mode echocardiogram with Doppler and color Doppler. INDICATION LV Function:SystolicDiastolic 2D DIMENSIONS Left Atrium (2D)3.4 (1.6-4.0cm)IVSd1.1 (0.7-1.1cm) LVDd4.0 (3.9-5.9cm)PWd1.3 (0.7-1.1cm) LVDs2.8 (2.5-4.0cm)FS (%) 29.5 % LVEF (%)57.0 (>50%) M-Mode DIMENSIONS Aortic Root3.50 (2.2-3.7cm)Aortic Cusp Exc.1.90 (1.5-2.0cm) Aortic Valve AoV Peak Wggeqcno694.0cm/Justin Peak GR.6mmHg Mitral Valve MV E Eftleqzh73.7cm/sMV A Tkncrawh83.4cm/sE/A ratio0.6 TDI Lateral E' Peak V5.07cm/sMedial E' Peak V6.53cm/sE/Lateral E'10.6 E/Medial E'8.2 Pulmonary Valve PV Peak Pplsnmji33.3cm/sPV Peak Grad.1mmHg Tricuspid Valve TR Peak Ryinmqfh669la/sRAP [id number] Peak Gr.17mmHg [id number] LEFT VENTRICLE The left ventricle is normal size. There is borderline concentric left ventricular hypertrophy. Proximal septal thickening is noted. The left ventricular function is normal.EF-55-60% There is normal LV segmental wall motion. Transmitral Doppler flow pattern is Grade III-reversible restrictive diastolic dysfunction. No left ventricle thrombus noted on this study. There is no ventricular septal defect visualized. There is no left ventricular aneurysm. There is no mass noted in the left ventricle. RIGHT VENTRICLE The right ventricle is normal size. There is normal right ventricular wall thickness. The right ventricular systolic function is normal. ATRIA The left atrium size is normal. The right atrium size is normal. The interatrial septum is intact with no evidence for an atrial septal defect. AORTIC VALVE The aortic valve is thickened but opens well. No aortic regurgitation is present. There is no aortic valvular stenosis. There is no aortic valvular vegetation. MITRAL VALVE The mitral valve is thickened but opens well. Mitral regurgitation is trace to mild. There is no mitral valve stenosis. There is no evidence of mitral valve prolapse. TRICUSPID VALVE The tricuspid valve leaflets are thickened , but open well. There is trace tricuspid regurgitation.RVSP-27 ,,of hg. There is no tricuspid valve stenosis. There is no tricuspid valve prolapse or vegetation. PULMONIC VALVE The pulmonic valve is not well visualized. GREAT VESSELS The aortic root is normal in size. The ascending aorta is normal in size. The pulmonary artery is normal. The IVC is normal in size and collapses >50% with inspiration. PERICARDIAL EFFUSION There is no pleural effusion. There is no pericardial effusion. <Conclusion> Normal chamber sizes. EF-55-60% Mitral regurgitation is trace to mild. There is trace tricuspid regurgitation.RVSP-[id number] ,,of hg. The IVC is normal in size and collapses >50% with inspiration. There is no pericardial effusion. no vegetation or thrombus noted.
--- NOTE | 2018-08-13 12:21 | US ---
HISTORY: Leg pain and swelling. Evaluate for DVT PHYSICIAN(S): Ady Lindsey MD. TECHNIQUE: Duplex sonography and color-flow Doppler with graded compression were used to evaluate the deep venous systems of both lower extremities. FINDINGS: The visualized deep venous systems of both lower extremities are sonographically normal and compressible. Normal wave forms and augmentation are seen. There is no sonographic evidence for deep venous thrombosis in the visualized segments of both lower extremities. IMPRESSION: No sonographic evidence for deep venous thrombosis in the visualized segments of both lower extremities.
== END 2018-08-13 14:19 | disposition home or self-care (01) ==
LOC: ED 04:27 → ERH 06:21 → 2RNO 08:21
PROVIDERS: ADMIT Hospitalist; ATTEND Internal Medicine
DX: R42 Dizziness and giddiness (principal); R11.2 Nausea with vomiting, unspecified; I25.10 Atherosclerotic heart disease of native coronary artery without angina pectoris; I10 Essential (primary) hypertension; E11.9 Type 2 diabetes mellitus without complications; E87.6 Hypokalemia; G47.00 Insomnia, unspecified; I44.0 Atrioventricular block, first degree; Z79.02 Long term (current) use of antithrombotics/antiplatelets; Z79.82 Long term (current) use of aspirin; Z79.84 Long term (current) use of oral hypoglycemic drugs; Z80.3 Family history of malignant neoplasm of breast; Z95.5 Presence of coronary angioplasty implant and graft; Z87.891 Personal history of nicotine dependence
CPT/HCPCS: 36415; 70450; 70496; 70498; 70551; 71046; 80053; 80061; 82550; 82948; 83036; 83615; 84443; 84484; 85025; 93005; 93306; 93970; 96372; 96374; 97116; 97161; 99285; G0378; G8978; G8979; G8980; J1650; J2405; J3480; J7030; Q9967